=== PATIENT | female | born 2000 | race Caucasian/White ===

== ENCOUNTER 2021-08-11 23:51 | Emergency (ER) | payer OTHER ==
[~2021-08-11] VITALS: Ht 157.5 cm; Wt 49.9 kg
[2021-08-11 23:58] VITALS: BP 132/86
--- NOTE | 2021-08-12 00:01 | NUR ---
TO LOBBY A/W BED AMBULATORY
--- NOTE | 2021-08-12 00:10 | NUR ---
PT TAKEN TO BED 1
--- NOTE | 2021-08-12 00:20 | NUR ---
Lab at bedside
--- NOTE | 2021-08-12 00:20 | NUR ---
20 y/o F BIB self from home c/o vaginal bleeding x 2 weeks. Patient A&Ox4, ambulatory, states she had a baby 2 months ago and began experiencing vaginal bleedin x 2 weeks, saturating a pad each hour. Patient reports no pain with bleeding, states small clots "half size of a rice grain" with a mixture of bright and dark red blood. Patient denies vaginal discharge, odor. States associated urinary hesitancy. Denies abdominal pain, N/V/D, dizziness, headache, blurry vision. LMP: 08/2020. Pt placed into a gown. Bed locked in lowest position, side rails x 1, call light in reach. PMH/Sx/Meds: Denies
--- NOTE | 2021-08-12 00:21 | NUR ---
Dr. Og examining patient.
--- NOTE | 2021-08-12 00:22 | NUR ---
UA given to Diandra, CPT at ER bedside
[2021-08-12 00:36] LABS: BASOPHILS % (AUTO) 0.6 % (0.0-2.0); EOSINOPHILS # (AUTO) 0.2 K/uL (0-0.4); EOSINOPHILS % (AUTO) 2.6 % (0.0-4.0); HEMATOCRIT 42.3 % (36-48); HEMOGLOBIN 14.2 g/dL (12.0-16.0); LYMPHOCYTES # (AUTO) 2.3 K/uL (2.5-16.5); LYMPHOCYTES % (AUTO) 29.4 % (20.5-51.1); MEAN CORPUSCULAR HEMOGLOBIN 28 pg (27-31); MEAN CORPUSCULAR HGB CONC 34 g/dL (33-37); MEAN CORPUSCULAR VOLUME 84.5 fL (80-94); MONOCYTES # (AUTO) 0.6 K/uL (0.8-1.0); MONOCYTES % (AUTO) 8.2 % (1.7-9.3); NEUTROPHILS # (AUTO) 4.5 K/uL (1.8-7.7); NEUTROPHILS % (AUTO) 59.2 % (42.2-75.2); PLATELET COUNT (AUTO) 335 K/uL (140-450); RED CELL DISTRIBUTION WIDTH 15.3 % (11.6-13.7); WHITE BLOOD COUNT (AUTO) 7.7 K/uL (4.8-10.8)
--- NOTE | 2021-08-12 00:36 | NUR ---
US tech at bedside.
[2021-08-12 00:42] LABS: APPEARANCE,URINE SL CLOUDY (CLEAR); BILIRUBIN,URINE NEGATIVE (NEGATIVE); BLOOD, URINE 3+ (NEGATIVE); COLOR,URINE YELLOW (YELLOW); LEUKOCYTE ESTERASE ,URINE 3+ (NEGATIVE); NITRITE, URINE NEGATIVE (NEGATIVE); PH,URINE 6.5 (5.0-9.0); UGLUCOSE NEGATIVE (NEGATIVE)
[2021-08-12 00:54] LABS: WBC,URINE 20-60 /HPF (0-5)
[2021-08-12 00:56] LABS: ALBUMIN 3.6 g/dL (3.4-5.0); ANION GAP 15.1 (8-16); CARBON DIOXIDE 24.5 mmol/L (21-32); CREATININE 0.9 mg/dL (0.6-1.3); POTASSIUM 3.6 mmol/L (3.5-5.1); TOTAL BILIRUBIN 0.3 mg/dL (0.0-1.0)
[2021-08-12 00:57] LABS: PROTHROMBIN TIME 9.4 secs (10.8-13.4)
--- NOTE | 2021-08-12 01:20 | NUR ---
Report and transfer of care endorsed to LORI Mcclendon
[2021-08-12] MEDS ORDERED: PENICILLIN G BENZATHINE L-A 1.2 MU/2 ML SYR IM ONE (01:45)
--- NOTE | 2021-08-12 01:50 | NUR ---
MEDICATED PER [facility] ORDER, TOLERATED WELL.
[2021-08-12 02:49] VITALS: BP 118/81
--- NOTE | 2021-08-12 02:49 | NUR ---
Patient discharged with v/s stable. Written and verbal after care instructions given and explained. Patient verbalized understanding. Ambulatory with steady gait. All questions addressed prior to discharge. Advised to follow up with PMD.
== END 2021-08-12 02:49 | disposition home or self-care (01) ==
LOC: MED 23:51
DX: O72.1 Other immediate postpartum hemorrhage (principal); O98.13 Syphilis complicating the puerperium
CPT/HCPCS: 36415; 76830; 80053; 81001; 84703; 85025; 85610; 85730; 86592; 87086; 96372; 99284; J0561; Q0092; 99283

== ENCOUNTER 2023-08-23 20:40 | Emergency (ER) | payer MEDICAID, OTHER ==
[~2023-08-23] VITALS: Ht 157.5 cm; Wt 54.4 kg
[2023-08-23 20:47] VITALS: BP 104/75; PULSE 109; RESP 19; TEMP 98.6; O2SAT 98
[2023-08-23 21:38] LABS: APPEARANCE,URINE CLEAR (CLEAR); BILIRUBIN,URINE NEGATIVE (NEGATIVE); BLOOD, URINE NEGATIVE (NEGATIVE); COLOR,URINE YELLOW (YELLOW); LEUKOCYTE ESTERASE ,URINE NEGATIVE (NEGATIVE); NITRITE, URINE NEGATIVE (NEGATIVE); PH,URINE 5.5 (5.0-9.0); PROTEIN,URINE TRACE (NEGATIVE); UGLUCOSE NEGATIVE (NEGATIVE); UROBILINOGEN,URINE 0.2 EU/dL (0.2 - 1)
[2023-08-23 22:50] LABS: COVID19 ANTIGEN SOFIA FIA NEGATIVE (NEGATIVE); FLU A ANTIGEN negative (NEGATIVE); FLU B ANTIGEN NEGATIVE (NEGATIVE)
[2023-08-23] MEDS ORDERED: AMOX1TAB8 PO (23:10)
[2023-08-23 23:21] VITALS: BP 104/75; PULSE 109; RESP 19; TEMP 98.6; O2SAT 98
== END 2023-08-23 23:21 | disposition home or self-care (01) ==
LOC: MED 20:40
DX: J20.9 Acute bronchitis, unspecified (principal); F17.200 Nicotine dependence, unspecified, uncomplicated; Z79.899 Other long term (current) drug therapy; Z20.822 Contact with and (suspected) exposure to COVID-19
CPT/HCPCS: 81003; 99283

== ENCOUNTER 2024-03-24 21:41 | Emergency (ER) | payer MEDICAID ==
[~2024-03-24] VITALS: Ht 157.5 cm; Wt 52.2 kg
[~2024-03-24 21:41] MED LIST: AMOX1TAB8 PO
[2024-03-24 21:55] VITALS: BP 109/67; PULSE 74; RESP 18; TEMP 97.9; O2SAT 99
[2024-03-24 22:02] VITALS: BP 109/67; PULSE 74; RESP 18; TEMP 97.9
[2024-03-24 22:12] VITALS: O2SAT 99
[2024-03-24 22:19] LABS: APPEARANCE,URINE CLEAR (CLEAR); BILIRUBIN,URINE NEGATIVE (NEGATIVE); BLOOD, URINE 3+ (NEGATIVE); COLOR,URINE YELLOW (YELLOW); LEUKOCYTE ESTERASE ,URINE TRACE (NEGATIVE); NITRITE, URINE NEGATIVE (NEGATIVE); PROTEIN,URINE NEGATIVE (NEGATIVE); UGLUCOSE NEGATIVE (NEGATIVE); UROBILINOGEN,URINE 0.2 EU/dL (0.2 - 1)
[2024-03-24 22:29] LABS: BACTERIA,URINE >30 (MANY) /HPF (None Seen); MUCUS,URINE 1+ /LPF (None Seen); SQUAMOUS EPITHELIAL CELL,UR 0-3 (FEW) /LPF (0-3 (FEW)); WBC,URINE 16-25 (MOD) /HPF (0-5)
[2024-03-24] MEDS ORDERED: LIDOCAINE MPF 1% 5 ML ONE (23:33)
[2024-03-24] MEDS ORDERED: cefTRIAXone 1,000 MG VIAL ONE (23:33)
[2024-03-24] MEDS: cefTRIAXone 1,000 MG in LIDOCAINE MPF 1% 2.1 ML IM ONE (23:36)
[2024-03-24] MEDS ORDERED: METR-435 PO (23:43)
[2024-03-24] MEDS ORDERED: NITR100C7 PO (23:43)
== END 2024-03-24 23:48 | disposition home or self-care (01) ==
LOC: MED 21:41
DX: N39.0 Urinary tract infection, site not specified (principal); N76.0 Acute vaginitis; B96.89 Other specified bacterial agents as the cause of diseases classified elsewhere; Z79.899 Other long term (current) drug therapy
CPT/HCPCS: 81001; 81025; 87086; 87210; 96372; 99283; J0696; J2001